=== PATIENT | male | born 1960 | race Caucasian/White ===

== ENCOUNTER 2019-07-02 00:10 | Outpatient (CLI) | payer OTHER, SELFPAY | END 2019-07-02 00:11 | disposition home or self-care (01) | LOC: ANHCOVIDDT 00:10 | PROVIDERS: PCP Family Medicine; Visit Provider Internal Medicine Gastroenterology | DX: Z01.818 Encounter for other preprocedural examination (principal); Z11.59 Encounter for screening for other viral diseases | CPT/HCPCS: 87635; C9803; U0003 ==

== ENCOUNTER 2019-07-05 01:25 | Day surgery (SDC) | payer OTHER, SELFPAY ==
[2019-06-29 14:30] VITALS: BMI 28.8
[2019-07-05 07:52] VITALS: BP 127/81; PULSE 79; RESP 16; TEMP 36.4; O2SAT 99
--- NOTE | 2019-07-05 08:00 | WPDANESEPPF ---
Anes - Initial Pre Proc Eval Procedure: Operation Date: 07/05/19 09:00 Proposed Procedures p Screening Colonoscopy - Avila Benitez MD Date/Time: 07/05/19 08:00 Surgeon: Avila Benitez MD Pre Op Diagnosis: Neoplasm Screening Patient Data Age: 59 Gender: M Height: 5 ft 10 in Weight: 86.6 kg Last Vital Signs Temp 36.4 C L 07/05/19 07:52 Pulse 79 07/05/19 07:52 Resp 16 07/05/19 07:52 BP 127/81 07/05/19 07:52 Pulse Ox 99 07/05/19 07:52 Allergies Allergy/AdvReac Type Severity Reaction Status Date / Time No Known Allergies Allergy Verified 06/29/19 14:27 Home Medications Medication Instructions Recorded Confirmed Type eszopiclone 2 mg tablet 2 mg PO .at bedtime #30 tablet 06/17/19 06/29/19 Rx sildenafil 100 mg tablet 100 mg PO DAILY PRN #9 tablet 06/17/19 07/05/19 Rx peg 3350-electrolytes 236 240 ml PO Q10M #4000 ml 06/21/19 Rx gram-22.74 gram-6.74 gram-5.86 gram solution aspirin [Aspirin Low Dose] 81 mg PO DAILY 06/29/19 06/29/19 History Patient hx anesthesia problems: none Family hx anesthesia problems: none PMFSH Past Medical History Medical History Erectile dysfunction Hypogonadism in male Insomnia Mixed hyperlipidemia Family History Family History Father Diabetes mellitus Depression Mother Diabetes mellitus Family history of lung cancer Grandparent Carcinoma of colon Social History Social History Smoking status: Never smoker Second hand tobacco smoke exposure: No Alcohol intake: current Anes - Eval Final PreProcedure Day of Procedure 07/05/19 08:00 Patient weight: overweight Heart: regular rate and rhythm Lungs: clear to auscultation Airway: Mallampati scale class II Neurological: alert and oriented Last oral intake: >/= 8 hours ASA classification: II Emergent: no Anesthetic plan: proceed Anesthesia type and monitoring: general GIVS and standard monitoring Informed Consent: The patient's anesthetic plan and its attendant risks and benefits were discussed with the patient/family/POA. Questions were solicited and answers provided to the satisfaction of the patient/family/POA.
[2019-07-05] MEDS: LACTATED RINGERS 1,000 ML 150 ML IV CONT (08:08)
--- NOTE | 2019-07-05 09:14 | PM.HPGS ---
History of Present Illness History of Present Illness Consent: Risks, benefits, and alternatives have been discussed and questions answered. Patient agrees to proceed with procedure. Chief complaint: Neoplasm Screening Narrative: Eugene Al is a 59 year old male with colon polyps 2017, he is due to have another colonoscopy Review of Systems Constitutional: Constitutional: Denies headache(s) and Denies weakness Eyes: Eyes: Denies blurry vision ENT: Reports Normal hearing present, Denies headache(s) and Denies neck pain Cardiovascular: Cardiovascular: Denies chest pain and Denies dyspnea Respiratory: Respiratory: Denies dyspnea Gastrointestinal: Gastrointestinal: Reports no additional gastrointestinal complaints Genitourinary: Genitourinary: Denies dysuria Musculoskeletal: Musculoskeletal: Denies neck pain Integumentary/Breasts: Skin/Breast: Denies dry skin Neurologic: Reports Normal hearing present, Denies headache(s) and Denies weakness Psychiatric: Psychiatric: Denies anxiety Endocrine: Endocrine: Denies change in body appearance Hematologic/Lymphatic: Hematologic/Lymphatic: Denies easy bleeding Allergic/Immunologic: Allergic/Immunologic: Denies urticaria PMFSH Past Medical History Medical History Erectile dysfunction Hypogonadism in male Insomnia Mixed hyperlipidemia Family History Family History Father Diabetes mellitus Depression Mother Diabetes mellitus Family history of lung cancer Grandparent Carcinoma of colon Social History Social History Smoking status: Never smoker Second hand tobacco smoke exposure: No Alcohol intake: current Meds Home Medications and Allergies Home Medications Medication Instructions Recorded Confirmed Type eszopiclone 2 mg tablet 2 mg PO .at bedtime #30 tablet 06/17/19 06/29/19 Rx sildenafil 100 mg tablet 100 mg PO DAILY PRN #9 tablet 06/17/19 07/05/19 Rx peg 3350-electrolytes 236 240 ml PO Q10M #4000 ml 06/21/19 Rx gram-22.74 gram-6.74 gram-5.86 gram solution aspirin [Aspirin Low Dose] 81 mg PO DAILY 06/29/19 06/29/19 History Allergies Allergy/AdvReac Type Severity Reaction Status Date / Time No Known Allergies Allergy Verified 05/13/20 14:27 Vital Signs Vital Signs - 24 hr 07/05/19 07:52 Temperature 97.5 F L Pulse Rate 79 Respiratory Rate 16 Blood Pressure 127/81 Pulse Oximetry 99 Exam Const: General: comfortable and no acute distress HENMT: General nose exam: Normal nares present Eyes: General: appearance normal, both eyes and all related structures Neck: Neck: no JVD Resp: Auscultation: clear to auscultation bilaterally Cardio: Rate: regular rate Rhythm: regular rhythm GI: Inspection: non-distended GI Palp: Yes Soft to palpation Skin: General skin exam: normal color Neuro: General: gait normal Speech: normal speech Extrem: General: normal to inspection Psych: Mental Status: mental status grossly normal Assessment and Plan Assessment and plan (1) Adenomatous colon polyp: Code(s): D12.6 - Benign neoplasm of colon, unspecified Status: Acute Assessment and Plan: will proceed with colonoscopy (2) Mixed hyperlipidemia: Code(s): E78.2 - Mixed hyperlipidemia Status: Acute
[2019-07-05 09:45] VITALS: BP 93/59; PULSE 75; RESP 18; O2SAT 95
[2019-07-05 09:55] VITALS: BP 89/60; PULSE 66; RESP 20; O2SAT 97
[2019-07-05 10:05] VITALS: BP 93/60; PULSE 61; RESP 20; O2SAT 98
== END 2019-07-05 10:16 | disposition home or self-care (01) ==
PROVIDERS: PCP Family Medicine; Visit Provider Internal Medicine Gastroenterology
PROC: 0DJD8ZZ Inspection of Lower Intestinal Tract, Via Natural or Artificial Opening Endoscopic (ICD-10-PCS; CPT 45378; principal; 2019-07-05 09:00)
DX: Z12.11 Encounter for screening for malignant neoplasm of colon (principal); D12.0 Benign neoplasm of cecum; D12.4 Benign neoplasm of descending colon; K57.30 Diverticulosis of large intestine without perforation or abscess without bleeding; K64.8 Other hemorrhoids; E78.2 Mixed hyperlipidemia; G47.00 Insomnia, unspecified; N52.9 Male erectile dysfunction, unspecified; Z79.82 Long term (current) use of aspirin
CPT/HCPCS: 45385; 45381; 88305; J2704; J7120

== ENCOUNTER 2021-09-27 01:09 | Day surgery (SDC) | payer OTHER, SELFPAY ==
[2021-09-10 15:11] VITALS: BMI 27.3
--- NOTE | 2021-09-26 13:30 | P.PNAN_ITS ---
Anes - Initial Pre Proc Eval Procedure: Operation Date: 09/27/21 10:00 Proposed Procedures p Screening Colonoscopy - Avila Benitez MD Date/Time: 09/26/21 13:30 Surgeon: Avila Benitez MD Pre Op Diagnosis: hx of colon polyps Patient Data Age: 61 Gender: M Height: 1.78 m Weight: 86.5 kg Allergies Allergy/AdvReac Type Severity Reaction Status Date / Time No Known Allergies Allergy Verified 09/27/21 08:58 Home Medications Medication Instructions Recorded Confirmed Type aspirin 81 mg tablet,delayed 81 mg PO DAILY 06/29/19 09/10/21 History release (Ama Low Dose Aspirin) coenzyme Q10 400 mg capsule (Co 400 mg PO DAILY 12/23/19 09/10/21 History Q-10) turmeric 400 mg capsule 400 mg PO DAILY 12/23/19 09/10/21 History sildenafil 100 mg tablet (Viagra) 100 mg PO DAILY PRN sexual 10/30/20 09/10/21 Rx activity #9 tabs omeprazole 40 mg capsule,delayed 40 mg PO DAILY #30 caps 07/19/21 09/10/21 Rx release sodium sul 1.479 gram-potas ch See Rx Instructions PO PER PKG DIR 07/25/21 Rx 0.188 gram-magnes sul 0.225 gram #24 tabs tablet (Sutab) eszopiclone 2 mg tablet 2 mg PO .at bedtime #30 tabs 08/11/21 09/10/21 Rx Patient hx anesthesia problems: none Family hx anesthesia problems: none Results Review: All pre-operative results and documents have been reviewed as part of the pre- operative evaluation. [facility] Past Medical History Medical History (Updated 09/26/21 @ 13:31 by Noe Rucker DO) Adenomatous colon polyp Erectile dysfunction GERD (gastroesophageal reflux disease) History of pulmonary embolism Hypogonadism in male Insomnia Mixed hyperlipidemia Family History Family History Father Diabetes mellitus Depression Mother Diabetes mellitus Family history of lung cancer Grandparent Carcinoma of colon Social History Social History Smoking status: Never smoker Second hand tobacco smoke exposure: No Alcohol intake: current Drinks per week: 2 Substance use: never Substance use type: does not use Living arrangements: with family Spiritual care concerns: No Agree to blood products: Yes Anes - Eval Final PreProcedure Day of Procedure 09/26/21 13:30 Patient weight: overweight Heart: regular rate and rhythm Lungs: clear to auscultation Airway: Mallampati scale class II Neurological: alert and oriented Last oral intake: >/= 8 hours ASA classification: II Emergent: no Anesthetic plan: proceed Anesthesia type and monitoring: general GIVS and standard monitoring Results Review: All pre-operative results and documents have been reviewed as part of the pre- operative evaluation. Informed Consent: The patient's anesthetic plan and its attendant risks and benefits were discussed with the patient/family/POA. Questions were solicited and answers provided to the satisfaction of the patient/family/POA.
[2021-09-27 08:58] VITALS: BP 131/71; PULSE 67; RESP 20; TEMP 36.4; O2SAT 99
[2021-09-27] MEDS: LACTATED RINGERS 1,000 ML 150 ML IV CONT (09:07)
--- NOTE | 2021-09-27 09:40 | PM.HPGS ---
History of Present Illness History of Present Illness Consent: Risks, benefits, and alternatives have been discussed and questions answered. Patient agrees to proceed with procedure. Chief complaint: hx of colon polyps Narrative: Eugene Al is a 61 year old male with large polyp removed in 2019 Review of Systems Constitutional: Constitutional: Denies headache(s) and Denies weakness Eyes: Eyes: Denies blurry vision ENT: Reports Normal hearing present, Denies headache(s) and Denies neck pain Cardiovascular: Cardiovascular: Denies chest pain and Denies dyspnea Respiratory: Respiratory: Denies dyspnea Gastrointestinal: Gastrointestinal: Reports no additional gastrointestinal complaints Genitourinary: Genitourinary: Denies dysuria Musculoskeletal: Musculoskeletal: Denies neck pain Integumentary/Breasts: Skin/Breast: Denies dry skin Neurologic: Reports Normal hearing present, Denies headache(s) and Denies weakness Psychiatric: Psychiatric: Denies anxiety Endocrine: Endocrine: Denies change in body appearance Hematologic/Lymphatic: Hematologic/Lymphatic: Denies easy bleeding Allergic/Immunologic: Allergic/Immunologic: Denies urticaria PMFSH Past Medical History Medical History (Updated 09/26/21 @ 13:31 by Noe Rucker DO) Adenomatous colon polyp Erectile dysfunction GERD (gastroesophageal reflux disease) History of pulmonary embolism Hypogonadism in male Insomnia Mixed hyperlipidemia Family History Family History Father Diabetes mellitus Depression Mother Diabetes mellitus Family history of lung cancer Grandparent Carcinoma of colon Social History Social History Smoking status: Never smoker Second hand tobacco smoke exposure: No Alcohol intake: current Drinks per week: 2 Substance use: never Substance use type: does not use Living arrangements: with family Spiritual care concerns: No Agree to blood products: Yes Meds Home Medications and Allergies Home Medications Medication Instructions Recorded Confirmed Type aspirin 81 mg tablet,delayed 81 mg PO DAILY 06/29/19 09/10/21 History release (Ama Low Dose Aspirin) coenzyme Q10 400 mg capsule (Co 400 mg PO DAILY 12/23/19 09/10/21 History Q-10) turmeric 400 mg capsule 400 mg PO DAILY 12/23/19 09/10/21 History sildenafil 100 mg tablet (Viagra) 100 mg PO DAILY PRN sexual 10/30/20 09/10/21 Rx activity #9 tabs omeprazole 40 mg capsule,delayed 40 mg PO DAILY #30 caps 07/19/21 09/10/21 Rx release sodium sul 1.479 gram-potas ch See Rx Instructions PO PER PKG DIR 07/25/21 Rx 0.188 gram-magnes sul 0.225 gram #24 tabs tablet (Sutab) eszopiclone 2 mg tablet 2 mg PO .at bedtime #30 tabs 08/11/21 09/10/21 Rx Allergies Allergy/AdvReac Type Severity Reaction Status Date / Time No Known Allergies Allergy Verified 09/27/21 08:58 Vital Signs Vital Signs - 24 hr 09/27/21 08:58 Temperature 97.5 F L Pulse Rate 67 Respiratory Rate 20 Blood Pressure 131/71 Pulse Oximetry 99 Oxygen Delivery Room Air Exam Const: General: comfortable and no acute distress HENMT: General nose exam: Normal nares present Eyes: General: appearance normal, both eyes and all related structures Neck: Neck: no JVD Resp: Auscultation: clear to auscultation bilaterally Cardio: Rate: regular rate Rhythm: regular rhythm GI: Inspection: non-distended GI Palp: Yes Soft to palpation Skin: General skin exam: normal color Neuro: General: gait normal Speech: normal speech Extrem: General: normal to inspection Psych: Mental Status: mental status grossly normal Assessment and Plan Assessment and plan (1) Adenomatous colon polyp: Code(s): D12.6 - Benign neoplasm of colon, unspecified Status: Acute Assessment and Plan: colonoscopy
[2021-09-27 10:09] VITALS: BP 101/64; PULSE 72; RESP 19; O2SAT 96
[2021-09-27 10:19] VITALS: BP 122/63; PULSE 67; RESP 18; O2SAT 96
[2021-09-27 10:29] VITALS: BP 127/69; PULSE 62; RESP 17; O2SAT 68
== END 2021-09-27 10:36 | disposition home or self-care (01) ==
PROVIDERS: PCP Family Medicine; Visit Provider Internal Medicine Gastroenterology
PROC: 0DJD8ZZ Inspection of Lower Intestinal Tract, Via Natural or Artificial Opening Endoscopic (ICD-10-PCS; CPT 45378; principal; 2021-09-27 10:00)
DX: Z12.11 Encounter for screening for malignant neoplasm of colon (principal); K57.30 Diverticulosis of large intestine without perforation or abscess without bleeding; K64.8 Other hemorrhoids; Z86.010 Personal history of colon polyps; E78.2 Mixed hyperlipidemia; K21.9 Gastro-esophageal reflux disease without esophagitis; Z79.82 Long term (current) use of aspirin
CPT/HCPCS: 45378; J2704; J7120

== ENCOUNTER → 2022-05-14 11:20 | Outpatient (CLI) | payer OTHER, SELFPAY ==
--- NOTE | ~2022-05-14 | XR_ITS ---
Left Hand Technique: PA, oblique, and lateral views were obtained. Clinical History: Injury Findings: There is a transverse fracture through the distal fifth metacarpal shaft with volar angulat ion of the distal fracture fragment. No intra-articular extension. No other fracture or dislocation s een. Joint spaces are preserved. Soft tissues are unremarkable. Impression: Transverse, volar angulated fracture of the distal fifth metacarpal shaft. Reviewed, dictated and finalized at location M. Impression: Transverse, volar angulated fracture of the distal fifth metacarpal shaft.
== END ==
PROVIDERS: PCP Family Medicine; Visit Provider Family Medicine
DX: S62.327A Displaced fracture of shaft of fifth metacarpal bone, left hand, initial encounter for closed fracture (principal); X58.XXXA Exposure to other specified factors, initial encounter
CPT/HCPCS: 73130

== ENCOUNTER 2022-06-16 08:30 | Outpatient (RCR) | payer BC, OTHER, SELFPAY ==
--- NOTE | 2022-06-02 13:48 | OTOPEVAL1 ---
Assessment and note entered by Kirit Goss, RAMEZ/Suad, CHT Evaluation Information Assessment Status Evaluation Diagnosis Left 5th metacarpal shaft fx Onset Mid Mar 2022 Subjective Information Patient reports punching a punching bag with sharp onset of pain. He did not seek medical care initially, just self splinted the hand and fingers in full extension. X-rays from 05/27/22 show healing fracture at the metacarpal shaft just proximal to the neck. He self immobilized the hand for about 6 weeks. Reports he wants to get back into weight lifting and yoga without restrictions. He is currently modifying yoga positions and avoiding lifting any heavy weights at this time. He presents with residual stiffness and edema which is restricting a functional fist. When flexing the digits, digits IV and V are about 1 to 1.5 cm from touching the palm. Intrinsic tightness also noted. The small finger has some degree of rotation toward the ring finger disrupting normal cascade of the digits. Reported Pain Level Pain Score 2: Self Report Additional Pain Score Comments Pain increases to 5/10 with ROM exercises. Assessment OT Clinical Summary Patient referred to outpatient hand therapy following left 5th metacarpal shaft fracture. Patient did not seek any medical evaluation until ~2 months following the injury. He presents with residual stiffness, edema, weakness, and pain which are limiting his return to weight lifting, typing, and gripping tasks. Skilled OT indicated for HEP instruction and progression, modalities, manual therapy, and functional therapeutic exercise to facilitate optimal functional use of his left hand. Plan of Care Interventions Therapeutic Exercise,Manual Therapy,Therapeutic Activities,Hot Pack/Cold Pack,Paraffin OT Services Indicated Yes Treatment Frequency and 1-2x/week for 4 weeks Duration These treatments will address the objective and functional deficits as defined above. The patient will be advanced safely and appropriately in order for the patient to progress towards his/her prior level of function. Additional exercises will be introduced and as well as a comprehensive home exercise program upon discharge, if needed, ?to ensure carryover of functional gains achieved in the clinic. This treatment plan has been reviewed and agreement upon by the patient.
--- NOTE | 2022-06-16 09:04 | OTOPDC ---
Assessment and note entered by Kirit Goss, RAMEZ/Suad, CHT Evaluation Information Assessment Status Discharge Diagnosis Left 5th metacarpal shaft fx Onset Mid Mar 2022 Subjective Information Eugene presents today, two weeks after starting hand therapy, with return of normal ROM. He reports he can do everything he was able to do before, but sometimes has to be careful with gripping items such as a glass of water. He is back to doing yoga poses without modifications. He is returning to the gym today to get back into weight lifting and plans to start with low weight and increase as able. He is very pleased with his progress. Reports some residual swelling that fluctuates throughout the day, otherwise reports his hand is 95% normal . Patient is now able to make a composite fist and hook fist. 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 Assessment OT Clinical Summary Patient referred to outpatient hand therapy following left 5th metacarpal shaft fracture. Patient did not seek any medical evaluation until ~2 months following the injury. He initially presented with residual stiffness, edema, weakness , and pain which are limiting his return to weight lifting, typing, and gripping tasks. 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 Hook fist is WFL and is progressing toward normal. 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 He is back to unrestricted hand use and reports he is very happy with his progress. No further skilled OT indicated at this time. Discharging today with goals met. Plan of Care OT Services Indicated No
== END 2022-06-16 15:25 | disposition home or self-care (01) ==
LOC: ANHOT 08:30
PROVIDERS: PCP Family Medicine; Visit Provider Orthopaedic Surgery
DX: S69.90XD Unspecified injury of unspecified wrist, hand and finger(s), subsequent encounter (principal)
CPT/HCPCS: 97018; 97110; 97166

== ENCOUNTER 2022-10-09 09:52 | Outpatient (CLI) | payer BC, SELFPAY ==
[2022-10-09 11:07] LABS: Influenza A QL RT-PCR Negative (Negative); Influenza B QL RT-PCR Negative (Negative); SARS-CoV-2 RNA PCR Positive (Negative)
== END 2022-10-09 09:53 | disposition home or self-care (01) ==
LOC: ANHLAB 09:53
PROVIDERS: PCP Family Medicine; Visit Provider Physician Assistant Medical
DX: R05.9 Cough, unspecified (principal); U07.1 COVID-19
CPT/HCPCS: 87636

== ENCOUNTER 2023-08-31 14:34 | Outpatient (CLI) | payer BC, SELFPAY ==
--- NOTE | ~2023-08-31 | XR_ITS ---
EXAM: XR hand LT min 3V DATE: 08/31/2023 14:54 HISTORY: M18.12 - Unilateral primary osteoarthritis of first carpo... . COMPARISON: 07/15/2022, images only. FINDINGS: Normal mineralization. Old left fifth metacarpal fracture. No acute fracture or dislocatio n. No lytic or blastic lesion. Scattered arthritic changes typical of osteoarthritis, moderate at the triscaphe joint and first CMC joint, mild in multiple interphalangeal joints and the radiocarpal natan nt. No erosion or periosteal change. Soft tissues within normal limits. IMPRESSION: Moderate polyarticular osteoarthritis. Reviewed, dictated and finalized at location K.
== END 2023-08-31 14:35 | disposition home or self-care (01) ==
PROVIDERS: PCP Family Medicine; Visit Provider Plastic Surgery
DX: M18.12 Unilateral primary osteoarthritis of first carpometacarpal joint, left hand (principal)
CPT/HCPCS: 73130